=== PATIENT | male | born 1960 | race African-American/Black ===

== ENCOUNTER 2017-06-06 16:04 | Inpatient (IN) | payer OTHER ==
[2017-06-06 18:02] VITALS: BMI 23.4
--- NOTE | 2017-06-06 20:34 | HP ---
CIWA Score - CIWA Score Nausea/Vomitin-Mild Nausea/No Vomiting Muscle Tremors: 4-Moderate,w/Arms Extend Anxiety: 4-Mod. Anxious/Guarded Agitation: 4-Moderately Restless Paroxysmal Sweats: 1-Minimal Palms Moist Orientation: 0-Oriented Tacttile Disturbances: 0-None Auditory Disturbances: 0-None Visual Disturbances: 0-None Headache: 1-Very Mild CIWA-Ar Total Score: 15 Admission ROS [facility] - HPI Chief Complaint: withdrawal sx Allergies/Adverse Reactions: Allergies Allergy/AdvReac Type Severity Reaction Status Date / Time No Known Allergies Allergy Verified 06/06/17 19:14 History of Present Illness: 56 years old male with long history of alcohol cocaine nicotine dependence has asthma chronic back pain and depression, methadone program 80 mg daily is admitted to detox Exam Limitations: No Limitations - Ebola screening Have you traveled outside of the country in the last 21 days: No Have you had contact with anyone from an Ebola affected area: No Have you been sick,other than usual withdrawal symptoms: No Do you have a fever: No - Review of Systems Constitutional: Loss of Appetite, Changes in sleep, Unintentional Wgt. Loss, Unexplained wgt Loss EENT: reports: Blurred Vision (eye glasses) Respiratory: reports: SOB with Exertion Cardiac: reports: No Symptoms Reported GI: reports: Nausea, Poor Appetite, Poor Fluid Intake, Indigestion, Abdominal cramping : reports: No Symptoms Reported Musculoskeletal: reports: Back Pain Integumentary: reports: No Symptoms Reported Neuro: reports: Tremors Endocrine: reports: No Symptoms Reported Hematology: reports: No Symptoms Reported Psychiatric: reports: Judgement Intact, Orientated x3, Depressed Other Systems: Reviewed and Negative Patient History - Patient Medical History Hx Anemia: No Hx Asthma: Yes Hx Chronic Obstructive Pulmonary Disease (COPD): No Hx Cancer: No Hx Cardiac Disorders: No Hx Congestive Heart Failure: No Hx Hypertension: No Hx Hypercholesterolemia: No Hx Pacemaker: No HX Cerebrovascular Accident: No Hx Seizures: No Hx Dementia: No Hx Diabetes: No Hx Gastrointestinal Disorders: No Hx Liver Disease: No Hx Genitourinary Disorders: No Hx Sexually Transmitted Disorders: No Hx Renal Disease (ESRD): No Hx Thyroid Disease: No Hx Human Immunodeficiency Virus (HIV): No Hx Hepatitis C: Yes Hx Depression: Yes Hx Suicide Attempt: No Hx Bipolar Disorder: No Hx Schizophrenia: No - Patient Surgical History Past Surgical History: No Hx Neurologic Surgery: No Hx Cataract Extraction: No Hx Cardiac Surgery: No Hx Lung Surgery: No Hx Breast Surgery: No Hx Breast Biopsy: No Hx Abdominal Surgery: No Hx Appendectomy: No Hx Cholecystectomy: No Hx Genitourinary Surgery: No Hx Orthopedic Surgery: No - PPD History Previous Implant?: Yes Documented Results: Negative w/o proof Implanted On Prior [facility] Admission?: No PPD to be Administered?: Yes - Smoking Cessation Smoking history: Current every day smoker Have you smoked in the past 12 months: Yes Aproximately how many cigarettes per day: 10 Cigars Per Day: 0 Hx Chewing Tobacco Use: No Initiated information on smoking cessation: Yes 'Breaking Loose' booklet given: 06/06/17 - Substance & Tx. History Hx Alcohol Use: Yes Hx Substance Use: Yes Substance Use Type: Alcohol, Cocaine, Heroin, Opiates Hx Substance Use Treatment: Yes (2012 [place]) - Substances Abused Heroin Route: Inhalation Frequency: Daily Amount used: 6 BAGS Age of first use: 20 Date of Last Use: 06/06/17 Alcohol Route: Oral Frequency: Daily Amount used: LIQUOR- 1 PINT, BEER- 2 XIS PACK Age of first use: 15 Date of Last Use: 06/06/17 Family Disease History - Family Disease History Family Disease History: Heart Disease: Mother, Other: Father ( liver) Admission Physical Exam [facility] - Vital Signs Vital Signs: Vital Signs - 24 hr 06/06/17 18:00 Temperature 96.9 F L Pulse Rate 75 Respiratory 16 Rate Blood Pressure 116/75 - Physical General Appearance: Yes: Appropriately Dressed, Mild Distress, Thin, Tremorous, Irritable, Sweating, Anxious HEENTM: Yes: Hearing grossly Normal, Normal ENT Inspection, Normocephalic, Normal Voice Respiratory: Yes: Chest Non-Tender, No Respiratory Distress, No Accessory Muscle Use, Wheezing Neck: Yes: Supple, Trachea in good position Breast: Yes: Breasts Symetrical Cardiology: Yes: Regular Rhythm, Regular Rate, S1, S2 Abdominal: Yes: Non Tender, Soft, Decreased BS Genitourinary: Yes: Within Normal Limits Back: Yes: Normal Inspection Musculoskeletal: Yes: full range of Motion, Gait Steady, Back pain Extremities: Yes: Normal Inspection, Normal Range of Motion, Non-Tender, Tremors Neurological: Yes: Fully Oriented, Alert, Motor Strength 5/5, Normal Response, Depressed Affect Integumentary: Yes: Warm Lymphatic: Yes: Within Normal Limits - Diagnostic (1) Alcohol dependence with uncomplicated withdrawal Current Visit: Yes Status: Acute (2) Methadone maintenance therapy patient Current Visit: Yes Status: Chronic Comment: 80 mg verification pending (3) Cocaine dependence with withdrawal Current Visit: Yes Status: Chronic (4) Asthma Current Visit: Yes Status: Chronic Qualifiers: Asthma severity: mild intermittent (5) Chronic back pain Current Visit: Yes Status: Chronic Qualifiers: Back pain location: low back pain Back pain laterality: bilateral Sciatica presence: without sciatica Qualified Code(s): M54.5 - Low back pain; G89.29 - Other chronic pain (6) Nicotine dependence Current Visit: Yes Status: Acute Qualifiers: Nicotine product type: cigarettes Substance use status: in withdrawal Qualified Code(s): F17.213 - Nicotine dependence, cigarettes, with withdrawal (7) Weight loss Current Visit: Yes Status: Acute (8) GERD (gastroesophageal reflux disease) Current Visit: Yes Status: Chronic Qualifiers: Esophagitis presence: without esophagitis Qualified Code(s): K21.9 - Gastro-esophageal reflux disease without esophagitis (9) Depression (emotion) Current Visit: Yes Status: Suspected Qualifiers: Depression Type: dysthymia Qualified Code(s): F34.1 - Dysthymic disorder (10) Hepatitis C Current Visit: Yes Status: Chronic Qualifiers: Viral hepatitis chronicity: carrier Qualified Code(s): B18.2 - Chronic viral hepatitis C Cleared for Admission [facility] - Detox or Rehab [facility] Level of Care: Medically Managed Detox Regimen/Protocol: Librium [facility] Breath Alcohol Content Breath Alcohol Content: 0 Urine Drug Screen - Results Drug Screen Negative: No Urine Drug Screen Results: DEEPAK-Cocaine, OPI-Opiates, MTD-Methadone
[2017-06-06] MEDS ORDERED: ACETAMINOPHEN 325 MG TABLET (FP) PO PRN (20:45)
[2017-06-06] MEDS ORDERED: MAG HYDROX/AL HYDROX/SIMETH 30 ML UNIT-DOSE CUP PO PRN (20:45)
[2017-06-06] MEDS ORDERED: MENTHOL/PHENOL 1 EACH UD MM PRN (20:45)
[2017-06-06] MEDS ORDERED: MAGNESIUM HYDROX 2400MG/30ML ORAL SUSPENSION 30 ML CUP PO PRN (20:45)
[2017-06-06] MEDS ORDERED: NICOTINE POLACRILEX 2 MG GUM BC PRN (20:45)
[2017-06-06] MEDS ORDERED: chlordiazePOXIDE HCL 25 MG CAPSULE PO PRN (20:45)
[2017-06-06] MEDS ORDERED: P-EPHED 60MG/TRIPROLIDI 2.5MG TABLET PO PRN (20:45)
[2017-06-06] MEDS ORDERED: diphenhydrAMINE HCL 50 MG CAPSULE PO PRN (20:45)
[2017-06-06] MEDS ORDERED: LOPERAMIDE HCL 2 MG CAPSULE PO PRN (20:45)
[2017-06-06] MEDS ORDERED: guaiFENesin/D-METHORPHAN HB 10 ML UNIT-DOSE CUPS PO PRN (20:45)
[2017-06-06] MEDS ORDERED: MAGNESIUM CITRATE 300 ML BOTTLE PO PRN (20:45)
[2017-06-06] MEDS ORDERED: NAPROXEN 500 MG TABLET (FP) PO PRN (20:49)
[2017-06-06] MEDS ORDERED: HYDROCORTISONE 1% TOPICAL CREAM 30 GM TUBE TP PRN (20:49)
[2017-06-06] MEDS: RANITIDINE HCL 150 MG TABLET (FP) PO SCH (21:45)
[2017-06-06] MEDS: THIAMINE HCL 100 MG TABLET (FP) PO SCH (21:45)
[2017-06-06] MEDS: LIDOCAINE PATCH REMOVAL MC SCH (21:51)
[2017-06-06] MEDS: DOCUSATE SODIUM 100 MG CAPSULE (FP) PO SCH (21:51)
[2017-06-06] MEDS: chlordiazePOXIDE HCL 25 MG CAPSULE PO SCH (22:01)
[2017-06-06 23:14] LABS: URINE APPEARANCE CLEAR; URINE BILIRUBIN NEGATIVE (NEGATIVE); URINE BLOOD NEGATIVE (NEGATIVE); URINE COLOR LTYELLOW; URINE GLUCOSE (UA) NEGATIVE (NEGATIVE); URINE KETONE NEGATIVE (NEGATIVE); URINE LEUK ESTERASE NEGATIVE (NEGATIVE); URINE NITRITE NEGATIVE (NEGATIVE); URINE PROTEIN NEGATIVE (NEGATIVE); URINE UROBILINOGEN NEGATIVE mg/dL (0.2-1.0)
[2017-06-07] MEDS: chlordiazePOXIDE HCL 25 MG CAPSULE PO SCH ×4 (05:55→22:16)
[2017-06-07] MEDS ORDERED: METHADONE HCL 40 MG DISPERSABLE TABLET PO ONE (09:30)
[2017-06-07 09:58] LABS: MCH 29.5 pg (25.7-33.7); MCHC 32.9 g/dl (32.0-35.9); MEAN CELL VOLUME 89.7 fl (80-96); MEAN PLT VOLUME 7.2 fl (7.5-11.1); PLATELET COUNT 171 K/MM3 (134-434); RDW 14.9 % (11.9-15.9); WHITE BLOOD COUNT 4.7 K/mm3 (4.0-10.0)
[2017-06-07] MEDS: NICOTINE 14 MG/24 HOURS TOPICAL PATCH TD SCH (10:13)
[2017-06-07] MEDS: LIDOCAINE 5% TOPICAL PATCH TP SCH (10:13)
[2017-06-07] MEDS: PRENATAL VITAMINS W/ FOLIC ACID TABLET (FP) PO SCH (10:13)
[2017-06-07] MEDS: RANITIDINE HCL 150 MG TABLET (FP) PO SCH ×2 (10:13→22:16)
[2017-06-07] MEDS: ALBUTEROL SO4 6.7 GM HFA INHALER IH PRN (10:14)
--- NOTE | 2017-06-07 10:31 | PN ---
[facility] CIWA - CIWA Score Nausea/Vomitin-No Nausea/No Vomiting Muscle Tremors: 4-Moderate,w/Arms Extend Anxiety: 4-Mod. Anxious/Guarded Agitation: 4-Moderately Restless Paroxysmal Sweats: 1-Minimal Palms Moist Orientation: 0-Oriented Tacttile Disturbances: 3-Moderate Itch/Numb/Burn Auditory Disturbances: 0-None Visual Disturbances: 0-None Headache: 0-None Present CIWA-Ar Total Score: 16 S Progress Note (SOAP) Subjective: ANXIETY,TREMORS,SWEATS. Objective: 06/07/17 10:33 Vital Signs Temperature 97 F L 06/07/17 06:34 Pulse Rate 63 06/07/17 09:29 Respiratory Rate 18 06/07/17 09:29 Blood Pressure 126/83 06/07/17 09:29 O2 Sat by Pulse Oximetry (%) Laboratory Last Values WBC 4.7 K/mm3 (4.0-10.0) 06/07/17 07:00 RBC 3.79 M/mm3 (4.00-5.60) L 06/07/17 07:00 Hgb 11.2 GM/dL (11.7-16.9) L 06/07/17 07:00 Hct 34.0 % (35.4-49) L 06/07/17 07:00 MCV 89.7 fl (80-96) 06/07/17 07:00 MCH 29.5 pg (25.7-33.7) 06/07/17 07:00 MCHC 32.9 g/dl (32.0-35.9) 06/07/17 07:00 RDW 14.9 % (11.9-15.9) 06/07/17 07:00 Plt Count 171 K/MM3 (134-434) 06/07/17 07:00 MPV 7.2 fl (7.5-11.1) L 06/07/17 07:00 Sodium 141 mmol/L (136-145) 06/07/17 07:00 Potassium 4.3 mmol/L (3.5-5.1) 06/07/17 07:00 Chloride 106 mmol/L (98-107) 06/07/17 07:00 Urine Color Ltyellow 06/06/17 23:00 Urine Appearance Clear 06/06/17 23:00 Urine pH 5.0 (5.0-8.0) 06/06/17 23:00 Ur Specific [place] <= 1.005 (1.005-1.025) 06/06/17 23:00 Urine Protein Negative (NEGATIVE) 06/06/17 23:00 Urine Glucose (UA) Negative (NEGATIVE) 06/06/17 23:00 Urine Ketones Negative (NEGATIVE) 06/06/17 23:00 Urine Blood Negative (NEGATIVE) 06/06/17 23:00 Urine Nitrite Negative (NEGATIVE) 06/06/17 23:00 Urine Bilirubin Negative (NEGATIVE) 06/06/17 23:00 Urine Urobilinogen Negative mg/dL (0.2-1.0) 06/06/17 23:00 Ur Leukocyte Esterase Negative (NEGATIVE) 06/06/17 23:00 Assessment: 06/07/17 10:33 WITHDRAWAL SX Plan: CONTINUE DETOX
[2017-06-07 10:35] LABS: ALBUMIN 2.8 g/dl (3.4-5.0); ALK PHOS 59 U/L (45-117); ANION GAP 5 (8-16); BILIRUBIN,TOTAL 0.2 mg/dL (0.2-1.0); CALCIUM 8.9 mg/dL (8.5-10.1); CO2 30 mmol/L (21-32); CREATININE 1.2 mg/dL (0.7-1.3); GLUCOSE,RANDOM 90 mg/dL (74-106); SGOT/AST 17 U/L (15-37); SGPT/ALT 35 U/L (12-78)
--- NOTE | 2017-06-07 11:12 | CONSULT ---
[facility] Psychiatric Consult - Data Date of interview: 06/07/17 Admission source: [facility] Identifying data: First admission to [facility] for this 56 y/o AA male seeking detox treatment for alcohol,cocaine and heroin dependence.patient is ,a father of three,domiciled and currently employed. Substance Abuse History: Confirmed by patient. Smoking Cessation. Smoking history: Current every day smoker. Have you smoked in the past 12 months: Yes. Aproximately how many cigarettes per day: 10. Cigars Per Day: 0. Hx Chewing Tobacco Use: No. Initiated information on smoking cessation: Yes. 'Breaking Loose' booklet given: 06/06/17. - Substance & Tx. History. Hx Alcohol Use: Yes. Hx Substance Use: Yes. Substance Use Type: Alcohol, Cocaine, Heroin, Opiates. Hx Substance Use Treatment: Yes (2012 [place]). - Substances Abused. Heroin. Route: Inhalation. Frequency: Daily. Amount used: 6 BAGS. Age of first use: 20. Date of Last Use: 06/06/17. Alcohol. Route: Oral. Frequency: Daily. Amount used: LIQUOR- 1 PINT, BEER- 2 XIS PACK. Age of first use: 15. Date of Last Use: 06/06/17 Medical History: GERD,lower back pain,herniated disks (lumbar spine),hepatitis C and bronchial asthma. Psychiatric History: Patient denies. Physical/Sexual Abuse/Trauma History: Patient denies. Additional Comment: Urine Drug Screen Results: DEEPAK-Cocaine, OPI-Opiates, MTD- Methadone.Noted. Mental Status Exam - Mental Status Exam Alert and Oriented to: Time, Place, Person Cognitive Function: Good Patient Appearance: Well Groomed Mood: Hopeful, Euthymic Affect: Appropriate Patient Behavior: Cooperative Speech Pattern: Clear, Appropriate Voice Loudness: Normal Thought Process: Intact, Goal Oriented Thought Disorder: Not Present Hallucinations: Denies Suicidal Ideation: Denies Homicidal Ideation: Denies Insight/Judgement: Poor Sleep: Poorly, Difficulty falling asleep Appetite: Good Muscle strength/Tone: Normal Gait/Station: Normal Psychiatric Findings - Problem List ([place] 1, 2,3) (1) Alcohol dependence with uncomplicated withdrawal Current Visit: Yes Status: Acute (2) Cocaine dependence with withdrawal Current Visit: Yes Status: Acute (3) Nicotine dependence Current Visit: Yes Status: Acute Qualifiers: Nicotine product type: cigarettes Substance use status: in withdrawal Qualified Code(s): F17.213 - Nicotine dependence, cigarettes, with withdrawal (4) Opioid dependence on agonist therapy Current Visit: Yes Status: Acute (5) Asthma Current Visit: Yes Status: Chronic Qualifiers: Asthma severity: mild intermittent (6) Chronic back pain Current Visit: Yes Status: Chronic Qualifiers: Back pain location: low back pain Back pain laterality: bilateral Sciatica presence: without sciatica Qualified Code(s): M54.5 - Low back pain; G89.29 - Other chronic pain (7) GERD (gastroesophageal reflux disease) Current Visit: Yes Status: Chronic Qualifiers: Esophagitis presence: without esophagitis Qualified Code(s): K21.9 - Gastro-esophageal reflux disease without esophagitis (8) Hepatitis C Current Visit: Yes Status: Chronic Qualifiers: Viral hepatitis chronicity: carrier Qualified Code(s): B18.2 - Chronic viral hepatitis C (9) Insomnia Current Visit: Yes Status: Acute - Initial Treatment Plan Initial Treatment Plan: Psychoeducation.Detoxification.Ambien 10 mg po hs prn.Patient informed of risk for parasomnias.He agrees with careplan.Observation.
[2017-06-07] MEDS: DOCUSATE SODIUM 100 MG CAPSULE (FP) PO SCH (22:16)
[2017-06-07] MEDS: LIDOCAINE PATCH REMOVAL MC SCH (22:16)
[2017-06-07] MEDS: ZOLPIDEM TARTRATE 10 MG TABLET (PARK CARE ONLY) PO PRN (22:16)
[2017-06-07] MEDS: THIAMINE HCL 100 MG TABLET (FP) PO SCH (22:16)
[2017-06-08] MEDS: chlordiazePOXIDE HCL 25 MG CAPSULE PO SCH ×3 (06:20→17:19)
[2017-06-08] MEDS: METHADONE HCL 40 MG DISPERSABLE TABLET PO SCH (06:20)
[2017-06-08] MEDS: RANITIDINE HCL 150 MG TABLET (FP) PO SCH ×2 (10:26→22:14)
[2017-06-08] MEDS: PRENATAL VITAMINS W/ FOLIC ACID TABLET (FP) PO SCH (10:26)
[2017-06-08] MEDS: ALBUTEROL SO4 6.7 GM HFA INHALER IH PRN (10:26)
[2017-06-08] MEDS: LIDOCAINE 5% TOPICAL PATCH TP SCH (10:26)
[2017-06-08] MEDS: NICOTINE 14 MG/24 HOURS TOPICAL PATCH TD SCH (10:26)
--- NOTE | 2017-06-08 11:27 | PN ---
[facility] CIWA - CIWA Score Nausea/Vomitin-No Nausea/No Vomiting Muscle Tremors: 4-Moderate,w/Arms Extend Anxiety: 4-Mod. Anxious/Guarded Agitation: 4-Moderately Restless Paroxysmal Sweats: 1-Minimal Palms Moist Orientation: 0-Oriented Tacttile Disturbances: 3-Moderate Itch/Numb/Burn Auditory Disturbances: 0-None Visual Disturbances: 0-None Headache: 0-None Present CIWA-Ar Total Score: 16 S Progress Note (SOAP) Subjective: ANXIETY,SWEATS, FATIGUE. Objective: 06/08/17 11:22 Vital Signs Temperature 97.4 F L 06/08/17 06:54 Pulse Rate 69 06/08/17 06:54 Respiratory Rate 18 06/08/17 06:54 Blood Pressure 124/71 06/08/17 06:54 O2 Sat by Pulse Oximetry (%) Laboratory Last Values WBC 4.7 K/mm3 (4.0-10.0) 06/07/17 07:00 RBC 3.79 M/mm3 (4.00-5.60) L 06/07/17 07:00 Hgb 11.2 GM/dL (11.7-16.9) L 06/07/17 07:00 Hct 34.0 % (35.4-49) L 06/07/17 07:00 MCV 89.7 fl (80-96) 06/07/17 07:00 MCH 29.5 pg (25.7-33.7) 06/07/17 07:00 MCHC 32.9 g/dl (32.0-35.9) 06/07/17 07:00 RDW 14.9 % (11.9-15.9) 06/07/17 07:00 Plt Count 171 K/MM3 (134-434) 06/07/17 07:00 MPV 7.2 fl (7.5-11.1) L 06/07/17 07:00 Sodium 141 mmol/L (136-145) 06/07/17 07:00 Potassium 4.3 mmol/L (3.5-5.1) 06/07/17 07:00 Chloride 106 mmol/L (98-107) 06/07/17 07:00 Carbon Dioxide 30 mmol/L (21-32) 06/07/17 07:00 Anion Gap 5 (8-16) L 06/07/17 07:00 BUN 18 mg/dL (7-18) 06/07/17 07:00 Creatinine 1.2 mg/dL (0.7-1.3) 06/07/17 07:00 Creat Clearance w eGFR > 60 (>60) 06/07/17 07:00 Random Glucose 90 mg/dL (74-106) 06/07/17 07:00 Calcium 8.9 mg/dL (8.5-10.1) 06/07/17 07:00 Total Bilirubin 0.2 mg/dL (0.2-1.0) 06/07/17 07:00 AST 17 U/L (15-37) 06/07/17 07:00 ALT 35 U/L (12-78) 06/07/17 07:00 Alkaline Phosphatase 59 U/L (45-117) 06/07/17 07:00 Total Protein 6.0 g/dl (6.4-8.2) L 06/07/17 07:00 Albumin 2.8 g/dl (3.4-5.0) L 06/07/17 07:00 Urine Color Ltyellow 06/06/17 23:00 Urine Appearance Clear 06/06/17 23:00 Urine pH 5.0 (5.0-8.0) 06/06/17 23:00 Ur Specific [place] <= 1.005 (1.005-1.025) 06/06/17 23:00 Urine Protein Negative (NEGATIVE) 06/06/17 23:00 Urine Glucose (UA) Negative (NEGATIVE) 06/06/17 23:00 Urine Ketones Negative (NEGATIVE) 06/06/17 23:00 Urine Blood Negative (NEGATIVE) 06/06/17 23:00 Urine Nitrite Negative (NEGATIVE) 06/06/17 23:00 Urine Bilirubin Negative (NEGATIVE) 06/06/17 23:00 Urine Urobilinogen Negative mg/dL (0.2-1.0) 06/06/17 23:00 Ur Leukocyte Esterase Negative (NEGATIVE) 06/06/17 23:00 RPR Titer Nonreactive (NONREACTIVE) 06/07/17 07:00 LABS NOTED. Assessment: 06/08/17 11:22 WITHDRAWAL SX Plan: CONTINUE DETOX
[2017-06-08] MEDS: THIAMINE HCL 100 MG TABLET (FP) PO SCH (22:14)
[2017-06-08] MEDS: chlordiazePOXIDE 5 MG CAPSULE PO SCH (22:14)
[2017-06-08] MEDS: LIDOCAINE PATCH REMOVAL MC SCH (22:14)
[2017-06-08] MEDS: DOCUSATE SODIUM 100 MG CAPSULE (FP) PO SCH (22:14)
[2017-06-08] MEDS: ZOLPIDEM TARTRATE 10 MG TABLET (PARK CARE ONLY) PO PRN (22:14)
[2017-06-09] MEDS: chlordiazePOXIDE 5 MG CAPSULE PO SCH ×3 (05:54→17:09)
[2017-06-09] MEDS: METHADONE HCL 40 MG DISPERSABLE TABLET PO SCH (05:55)
[2017-06-09 09:40] LABS: MCH 29.3 pg (25.7-33.7); MCHC 32.1 g/dl (32.0-35.9); MEAN CELL VOLUME 91.2 fl (80-96); MEAN PLT VOLUME 7.2 fl (7.5-11.1); PLATELET COUNT 189 K/MM3 (134-434); RDW 14.7 % (11.9-15.9); WHITE BLOOD COUNT 4.2 K/mm3 (4.0-10.0)
[2017-06-09] MEDS: RANITIDINE HCL 150 MG TABLET (FP) PO SCH ×2 (10:13→22:13)
[2017-06-09] MEDS: PRENATAL VITAMINS W/ FOLIC ACID TABLET (FP) PO SCH (10:13)
[2017-06-09] MEDS: LIDOCAINE 5% TOPICAL PATCH TP SCH (10:13)
[2017-06-09] MEDS: NICOTINE 14 MG/24 HOURS TOPICAL PATCH TD SCH (10:13)
--- NOTE | 2017-06-09 10:35 | PN ---
S Progress Note (SOAP) Subjective: DECREASED ANXIETY,SWEATS,TREMORS. Objective: 06/09/17 10:34 Vital Signs Temperature 97.1 F L 06/09/17 09:26 Pulse Rate 75 06/09/17 09:26 Respiratory Rate 18 06/09/17 09:26 Blood Pressure 121/79 06/09/17 09:26 O2 Sat by Pulse Oximetry (%) Laboratory Last Values WBC 4.2 K/mm3 (4.0-10.0) 06/09/17 07:00 RBC 4.13 M/mm3 (4.00-5.60) 06/09/17 07:00 Hgb 12.1 GM/dL (11.7-16.9) 06/09/17 07:00 Hct 37.6 % (35.4-49) 06/09/17 07:00 MCV 91.2 fl (80-96) 06/09/17 07:00 MCH 29.3 pg (25.7-33.7) 06/09/17 07:00 MCHC 32.1 g/dl (32.0-35.9) 06/09/17 07:00 RDW 14.7 % (11.9-15.9) 06/09/17 07:00 Plt Count 189 K/MM3 (134-434) 06/09/17 07:00 MPV 7.2 fl (7.5-11.1) L 06/09/17 07:00 Sodium 141 mmol/L (136-145) 06/07/17 07:00 Potassium 4.3 mmol/L (3.5-5.1) 06/07/17 07:00 Chloride 106 mmol/L (98-107) 06/07/17 07:00 Carbon Dioxide 30 mmol/L (21-32) 06/07/17 07:00 Anion Gap 5 (8-16) L 06/07/17 07:00 BUN 18 mg/dL (7-18) 06/07/17 07:00 Creatinine 1.2 mg/dL (0.7-1.3) 06/07/17 07:00 Creat Clearance w eGFR > 60 (>60) 06/07/17 07:00 Random Glucose 90 mg/dL (74-106) 06/07/17 07:00 Calcium 8.9 mg/dL (8.5-10.1) 06/07/17 07:00 Total Bilirubin 0.2 mg/dL (0.2-1.0) 06/07/17 07:00 AST 17 U/L (15-37) 06/07/17 07:00 ALT 35 U/L (12-78) 06/07/17 07:00 Alkaline Phosphatase 59 U/L (45-117) 06/07/17 07:00 Total Protein 6.0 g/dl (6.4-8.2) L 06/07/17 07:00 Albumin 2.8 g/dl (3.4-5.0) L 06/07/17 07:00 Urine Color Ltyellow 06/06/17 23:00 Urine Appearance Clear 06/06/17 23:00 Urine pH 5.0 (5.0-8.0) 06/06/17 23:00 Ur Specific [place] <= 1.005 (1.005-1.025) 06/06/17 23:00 Urine Protein Negative (NEGATIVE) 06/06/17 23:00 Urine Glucose (UA) Negative (NEGATIVE) 06/06/17 23:00 Urine Ketones Negative (NEGATIVE) 06/06/17 23:00 Urine Blood Negative (NEGATIVE) 06/06/17 23:00 Urine Nitrite Negative (NEGATIVE) 06/06/17 23:00 Urine Bilirubin Negative (NEGATIVE) 06/06/17 23:00 Urine Urobilinogen Negative mg/dL (0.2-1.0) 06/06/17 23:00 Ur Leukocyte Esterase Negative (NEGATIVE) 06/06/17 23:00 RPR Titer Nonreactive (NONREACTIVE) 06/07/17 07:00 Assessment: 06/09/17 10:35 WITHDRAWAL SX Plan: CONTINUE DETOX
--- NOTE | 2017-06-09 11:36 | EKG ---
Test Reason : Blood Pressure : / mmHG Vent. Rate : 071 BPM Atrial Rate : 071 BPM P-R Int : 178 ms QRS Dur : 092 ms QT Int : 378 ms P-R-T Axes : 069 032 056 degrees QTc Int : 410 ms NORMAL SINUS RHYTHM NORMAL ECG NO PREVIOUS ECGS AVAILABLE Confirmed by CIRO ACOSTA MD ([id number]) on 06/09/2017 11:36:15 AM Referred By: Confirmed By:CIRO ACOSTA MD
[2017-06-09] MEDS: LIDOCAINE PATCH REMOVAL MC SCH (22:13)
[2017-06-09] MEDS: chlordiazePOXIDE HCL 10 MG CAPSULE PO SCH (22:13)
[2017-06-09] MEDS: THIAMINE HCL 100 MG TABLET (FP) PO SCH (22:13)
[2017-06-09] MEDS: ZOLPIDEM TARTRATE 10 MG TABLET (PARK CARE ONLY) PO PRN (22:13)
[2017-06-09] MEDS: DOCUSATE SODIUM 100 MG CAPSULE (FP) PO SCH (22:13)
[2017-06-10] MEDS: chlordiazePOXIDE HCL 10 MG CAPSULE PO SCH ×2 (05:15→10:21)
[2017-06-10] MEDS: METHADONE HCL 40 MG DISPERSABLE TABLET PO SCH (05:15)
--- NOTE | 2017-06-10 09:22 | DS ---
[facility] Detox Discharge Summary Admission Date: 06/06/17 Discharge Date: 06/10/17 - History Present History: Alcohol Dependence, Cocaine Dependence, MMTP Additional Comments: DETOX COMPLETED. ALERT O X 3. NAD. PT INSTRUCTED TO FOLLOW UP WITH PMD, DR CIRO Ko FOR MEDICAL MANAGEMENT NEEDED. Pertinent Past History: GERD HEP C ASTHMA - Physical Exam Results Vital Signs: Vital Signs Temperature 97.2 F L 06/10/17 06:39 Pulse Rate 70 06/10/17 06:39 Respiratory Rate 18 06/10/17 06:39 Blood Pressure 128/86 06/10/17 06:39 O2 Sat by Pulse Oximetry (%) Pertinent Admission Physical Exam Findings: WITHDRAWAL SX Laboratory Last Values WBC 4.2 K/mm3 (4.0-10.0) 06/09/17 07:00 RBC 4.13 M/mm3 (4.00-5.60) 06/09/17 07:00 Hgb 12.1 GM/dL (11.7-16.9) 06/09/17 07:00 Hct 37.6 % (35.4-49) 06/09/17 07:00 MCV 91.2 fl (80-96) 06/09/17 07:00 MCH 29.3 pg (25.7-33.7) 06/09/17 07:00 MCHC 32.1 g/dl (32.0-35.9) 06/09/17 07:00 RDW 14.7 % (11.9-15.9) 06/09/17 07:00 Plt Count 189 K/MM3 (134-434) 06/09/17 07:00 MPV 7.2 fl (7.5-11.1) L 06/09/17 07:00 Sodium 141 mmol/L (136-145) 06/07/17 07:00 Potassium 4.3 mmol/L (3.5-5.1) 06/07/17 07:00 Chloride 106 mmol/L (98-107) 06/07/17 07:00 Carbon Dioxide 30 mmol/L (21-32) 06/07/17 07:00 Anion Gap 5 (8-16) L 06/07/17 07:00 BUN 18 mg/dL (7-18) 06/07/17 07:00 Creatinine 1.2 mg/dL (0.7-1.3) 06/07/17 07:00 Creat Clearance w eGFR > 60 (>60) 06/07/17 07:00 Random Glucose 90 mg/dL (74-106) 06/07/17 07:00 Calcium 8.9 mg/dL (8.5-10.1) 06/07/17 07:00 Total Bilirubin 0.2 mg/dL (0.2-1.0) 06/07/17 07:00 AST 17 U/L (15-37) 06/07/17 07:00 ALT 35 U/L (12-78) 06/07/17 07:00 Alkaline Phosphatase 59 U/L (45-117) 06/07/17 07:00 Total Protein 6.0 g/dl (6.4-8.2) L 06/07/17 07:00 Albumin 2.8 g/dl (3.4-5.0) L 06/07/17 07:00 Urine Color Ltyellow 06/06/17 23:00 Urine Appearance Clear 06/06/17 23:00 Urine pH 5.0 (5.0-8.0) 06/06/17 23:00 Ur Specific [place] <= 1.005 (1.005-1.025) 06/06/17 23:00 Urine Protein Negative (NEGATIVE) 06/06/17 23:00 Urine Glucose (UA) Negative (NEGATIVE) 06/06/17 23:00 Urine Ketones Negative (NEGATIVE) 06/06/17 23:00 Urine Blood Negative (NEGATIVE) 06/06/17 23:00 Urine Nitrite Negative (NEGATIVE) 06/06/17 23:00 Urine Bilirubin Negative (NEGATIVE) 06/06/17 23:00 Urine Urobilinogen Negative mg/dL (0.2-1.0) 06/06/17 23:00 Ur Leukocyte Esterase Negative (NEGATIVE) 06/06/17 23:00 RPR Titer Nonreactive (NONREACTIVE) 06/07/17 07:00 - Treatment Hospital Course: Detox Protocol Followed, Detoxed Safely, Responded well, Discharged Condition Good, Rehab Referral Accepted Patient has Accepted a Rehab Referral to: [facility] [place], [place] - Medication Discharge Medications: Ambulatory Orders Albuterol Sulfate Inhaler - [Ventolin HFA Inhaler -] 1 - 2 inh PO QID 06/06/17 Esomeprazole Magnesium [Nexium 24Hr] 20 mg PO DAILY 06/06/17 Zolpidem Tartrate [Ambien] 10 mg PO HS 06/06/17 - Diagnosis (1) Alcohol dependence with uncomplicated withdrawal Current Visit: Yes Status: Acute (2) Nicotine dependence Current Visit: Yes Status: Acute Qualifiers: Nicotine product type: cigarettes Substance use status: in withdrawal Qualified Code(s): F17.213 - Nicotine dependence, cigarettes, with withdrawal (3) Weight loss Current Visit: Yes Status: Acute (4) Asthma Current Visit: Yes Status: Chronic Qualifiers: Asthma severity: mild intermittent (5) Chronic back pain Current Visit: Yes Status: Chronic Qualifiers: Back pain location: low back pain Back pain laterality: bilateral Sciatica presence: without sciatica Qualified Code(s): M54.5 - Low back pain; G89.29 - Other chronic pain (6) Cocaine dependence with withdrawal Current Visit: Yes Status: Acute (7) GERD (gastroesophageal reflux disease) Current Visit: Yes Status: Chronic Qualifiers: Esophagitis presence: without esophagitis Qualified Code(s): K21.9 - Gastro-esophageal reflux disease without esophagitis (8) Hepatitis C Current Visit: Yes Status: Chronic Qualifiers: Viral hepatitis chronicity: carrier Qualified Code(s): B18.2 - Chronic viral hepatitis C (9) Methadone maintenance therapy patient Current Visit: Yes Status: Chronic - AMA Did Patient Leave Against Medical Advice: No
[2017-06-10 09:49] VITALS: BP 125/85; PULSE 61; TEMP 96.9
[2017-06-10] MEDS: PRENATAL VITAMINS W/ FOLIC ACID TABLET (FP) PO SCH (10:20)
[2017-06-10] MEDS: RANITIDINE HCL 150 MG TABLET (FP) PO SCH (10:20)
[2017-06-10] MEDS: LIDOCAINE 5% TOPICAL PATCH TP SCH (10:21)
[2017-06-10] MEDS: NICOTINE 14 MG/24 HOURS TOPICAL PATCH TD SCH (10:21)
== END 2017-06-10 15:47 | disposition home or self-care (01) | DRG 773 ==
LOC: YASAS 16:04 → Y3N 20:16 → UNDODISIN 06-10 10:45
PROVIDERS: ADMIT Internal Medicine Addiction Medicine; ATTEND Internal Medicine Addiction Medicine
PROC: HZ2ZZZZ Detoxification Services for Substance Abuse Treatment (ICD-10-PCS; principal; 2017-06-10)
DX: F11.20 Opioid dependence, uncomplicated (principal); F10.230 Alcohol dependence with withdrawal, uncomplicated; F14.23 Cocaine dependence with withdrawal; F17.213 Nicotine dependence, cigarettes, with withdrawal; G47.00 Insomnia, unspecified; B18.2 Chronic viral hepatitis C; J45.20 Mild intermittent asthma, uncomplicated; K21.9 Gastro-esophageal reflux disease without esophagitis; M54.5 Low back pain; G89.29 Other chronic pain; R63.4 Abnormal weight loss; Z68.23 Body mass index [BMI] 23.0-23.9, adult
CPT/HCPCS: 36415; 80053; 81003; 85027; 86593; 93005; 93010